=== PATIENT | female | born 2000 | race Caucasian/White ===

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

== ENCOUNTER 2020-08-21 21:52 | Emergency (ER) | payer OTHER ==
[~2020-08-21 21:52] MED LIST: PREDNISONE 50 M50 MG PO; ZITHROMAX250 MG PO
[2020-08-21 22:35] LABS: RED BLOOD COUNT 4.11 M/UL (4.00-5.10); WHITE BLOOD COUNT 9.4 K/UL (4.5-11.0)
== END 2020-08-22 00:15 | disposition home or self-care (01) ==
LOC: ER1 21:52
PROVIDERS: Emergency Medicine
DX: O20.0 Threatened abortion (principal); O99.331 Smoking (tobacco) complicating pregnancy, first trimester; F17.290 Nicotine dependence, other tobacco product, uncomplicated; Z3A.01 Less than 8 weeks gestation of pregnancy
CPT/HCPCS: 81001; 84702; 85025; 86850; 86900; 86901; 87086; 99284; J2790

== ENCOUNTER 2021-11-08 16:59 | Emergency (ER) | payer OTHER ==
[2021-11-08 20:51] LABS: HEMOGLOBIN 11.7 gm/dl (12.3-15.3); RED BLOOD COUNT 4.02 M/UL (4.00-5.10); WHITE BLOOD COUNT 15.5 K/UL (4.5-11.0)
[2021-11-08 21:09] LABS: BUN/CREATININE RATIO 12 (0-10)
== END 2021-11-08 22:45 | disposition home or self-care (01) ==
LOC: ER1 16:59
PROVIDERS: Student in an Organized Health Care Education/Training Program
DX: O99.891 Other specified diseases and conditions complicating pregnancy (principal); R51.9 Headache, unspecified; Z3A.01 Less than 8 weeks gestation of pregnancy
CPT/HCPCS: 80053; 81001; 85025; 99284